=== PATIENT | female | born 1985 | race Caucasian/White ===

== ENCOUNTER 2017-03-12 21:28 | Emergency (ER) | payer OTHER ==
[2017-03-12 22:16] LABS: Hematocrit 36 % (35-47); Hemoglobin 12.4 g/dl (12.0-16.0); Mean Corpuscular HGB Conc 35 g/dl (31-36); Mean Corpuscular Hemoglobin 31 pg (27-31); Mean Corpuscular Volume 90 fL (80-97); Mean Platelet Volume 9 um3 (7.4-10.4); Red Cell Distribution Width 12 % (10.5-15); White Blood Count 7.4 10^3/ul (3.5-10.8)
[2017-03-12 22:21] LABS: Urine Bilirubin Negative (Negative); Urine Glucose Negative (Negative); Urine Nitrite Negative (Negative)
[2017-03-12 22:28] LABS: ALT 10 U/L (7-52); AST 15 U/L (13-39); Albumin 4.4 g/dL (3.2-5.2); Alkaline Phosphatase 36 U/L (34-104); Anion Gap 8 mmol/L (2-11); BUN/Creatinine Ratio 19.1 (8-20); Blood Urea Nitrogen 13 mg/dL (6-24); C Reactive Protein < 1.00 mg/L (< 5.00); CO2 Carbon Dioxide 21 mmol/L (22-32); Calcium 9.6 mg/dL (8.6-10.3); Chloride 107 mmol/L (101-111); EGFR African American 128.2 (>60); EGFR Non-African American 99.6 (>60); Globulin 2.8 g/dL (2-4); Glucose 87 mg/dL (70-100); Lipase 28 U/L (11.0-82.0); Potassium 3.6 mmol/L (3.5-5.0); Sodium 136 mmol/L (133-145); Total Protein 7.2 g/dL (6.4-8.9)
[2017-03-12] MEDS ORDERED: Cyclobenzaprine TAB* 10 MG PO ONE (23:55)
[2017-03-13 00:51] VITALS: BP 102/63
--- NOTE | 2017-03-13 01:58 | ED ---
Abdominal Pain/Female - HPI Summary HPI Summary: Patient presents to the ED with CC of right flank pain, RLQ and LLQ pain worse on the right side since 2 days. She is now experiencing urinary symptoms. She denies V/C/D. Denies fevers, sweats and chills. She is otherwise healthy, denies previous abdominal surgeries and is unknown if she is . Urinary symptoms include feelings of not being able to go and painful urination x 1 earlier today. Denies any medication use. Pain does not change depending on position. Worse with nothing, and better with spontaneous resolution. Pain is intermittent and not associated with food intake. Denies RUQ pain. Last BM this morning. - History of Current Complaint Chief Complaint: EDFlankPain Stated Complaint: FLANK PAIN Time Seen by Provider: 03/12/17 21:39 Hx Obtained From: Patient Hx Last Menstrual Period: 02/28/17 ?: No Onset/Duration: Sudden Onset Timing: Minutes Severity Initially: Mild Severity Currently: Mild Pain Intensity: 4 Pain Scale Used: 0-10 Numeric Location: Flank - bilateral Radiates: Yes Radiates to: RLQ Character: Dull, Burning Alleviating Factor(s): Nothing Associated Signs and Symptoms: Positive: Negative - Risk Factors Ectopic Risk Factor: Negative Ovarian Torsion Risk Factor: Reproductive Age Allergies/Adverse Reactions: Allergies Allergy/AdvReac Type Severity Reaction Status Date / Time Erythromycin Allergy Intermediate Rash Verified 07/01/14 03:06 Penicillins Allergy Unknown Verified 07/01/14 03:06 Reaction Details PMH/Surg Hx/FS Hx/Imm Hx Previously Healthy: Yes - Immunization History Hx Pertussis Vaccination: No Immunizations Up to Date: Unable to Obtain/Confirm Infectious Disease History: No Infectious Disease History: Denies: Traveled Outside the [place] in Last 30 Days - Family History Known Family History: Negative: Renal Disease - Social History Occupation: Employed Full-time Lives: With Family Alcohol Use: Occasionally Alcohol Amount: 2-3/week Hx Substance Use: No Substance Use Type: Reports: None Hx Tobacco Use: No Smoking Status (MU): Never Smoked Tobacco Review of Systems Constitutional: Negative Negative: Fever, Chills, Fatigue Eyes: Negative Cardiovascular: Negative Respiratory: Negative Positive: Abdominal Pain Genitourinary: Negative Positive: see HPI, dysuria, flank pain, pain, urgency Skin: Negative Psychological: Normal All Other Systems Reviewed And Are Negative: Yes Physical Exam Triage Information Reviewed: Yes Vital Signs On Initial Exam: Initial Vitals Temp Pulse Resp BP Pulse Ox 98.4 F 62 16 120/70 98 03/12/17 21:33 03/12/17 21:33 03/12/17 21:33 03/12/17 21:33 03/12/17 21:33 Vital Signs Reviewed: Yes Appearance: Positive: Well-Appearing, Well-Nourished Skin: Positive: Warm, Skin Color Reflects Adequate Perfusion Neck: Positive: Supple, No Lymphadenopathy Respiratory/Lung Sounds: Positive: Clear to Auscultation, Breath Sounds Present Cardiovascular: Positive: RRR, Pulses are Symmetrical in both Upper and Lower Extremities Abdomen Description: Positive: Soft, Other: - tenderness on deep palpation of the bilateral lower quadrants; minimal pain with CVA Bowel Sounds: Positive: Present Musculoskeletal: Positive: Normal, Strength/ROM Intact Neurological: Positive: Speech Normal Psychiatric: Positive: Normal, Affect/Mood Appropriate - Jay Coma Scale Best Eye Response: 4 - Spontaneous Best Motor Response: 6 - Obeys Commands Best Verbal Response: 5 - Oriented Coma Scale Total: 15 Diagnostics - Vital Signs Vital Signs Temp Pulse Resp BP Pulse Ox 03/13/17 00:51 99.4 F 03/13/17 00:01 76 102/63 99 03/13/17 00:00 73 100 03/12/17 23:46 75 100 03/12/17 23:30 74 100/57 100 03/12/17 23:00 78 108/68 99 03/12/17 22:00 78 107/71 100 03/12/17 21:48 89 99 03/12/17 21:46 118/81 03/12/17 21:33 98.4 F 62 16 120/70 98 - Laboratory Lab Results: Lab Results 03/12/17 03/12/17 03/12/17 Range/Units 21:56 21:59 21:59 WBC 7.4 (3.5-10.8) 10^3/ul RBC 4.00 (4.0-5.4) 10^6/ul Hgb 12.4 (12.0-16.0) g/dl Hct 36 (35-47) % MCV 90 (80-97) fL MCH 31 (27-31) pg MCHC 35 (31-36) g/dl RDW 12 (10.5-15) % Plt Count 259 (150-450) 10^3/ul MPV 9 (7.4-10.4) um3 Neut % (Auto) 47.6 (38-83) % Lymph % (Auto) 41.9 (25-47) % Brooke % (Auto) 7.2 (1-9) % Eos % (Auto) 2.4 (0-6) % Baso % (Auto) 0.9 (0-2) % Absolute Neuts (auto) 3.5 (1.5-7.7) 10^3/ul Absolute Lymphs (auto) 3.1 (1.0-4.8) 10^3/ul Absolute Monos (auto) 0.5 (0-0.8) 10^3/ul Absolute Eos (auto) 0.2 (0-0.6) 10^3/ul Absolute Basos (auto) 0.1 (0-0.2) 10^3/ul Absolute Nucleated RBC 0.01 10^3/ul Nucleated RBC % 0.1 Sodium 136 (133-145) mmol/L Potassium 3.6 (3.5-5.0) mmol/L Chloride 107 (101-111) mmol/L Carbon Dioxide 21 L (22-32) mmol/L Anion Gap 8 (2-11) mmol/L BUN 13 (6-24) mg/dL Creatinine 0.68 (0.51-0.95) mg/dL Est GFR ( Amer) 128.2 (>60) Est GFR (Non-Af Amer) 99.6 (>60) BUN/Creatinine Ratio 19.1 (8-20) Glucose 87 (70-100) mg/dL Lactic Acid (0.5-2.0) mmol/L Calcium 9.6 (8.6-10.3) mg/dL Total Bilirubin 0.40 (0.2-1.0) mg/dL AST 15 (13-39) U/L ALT 10 (7-52) U/L Alkaline Phosphatase 36 (34-104) U/L C-Reactive Protein < 1.00 (< 5.00) mg/L Total Protein 7.2 (6.4-8.9) g/dL Albumin 4.4 (3.2-5.2) g/dL Globulin 2.8 (2-4) g/dL Albumin/Globulin Ratio 1.6 (1-3) Lipase 28 (11.0-82.0) U/L Beta HCG, Quant < 0.60 mIU/mL Urine Color Colorless Urine Appearance Clear Urine pH 6.0 (5-9) Ur Specific [place] 1.002 L (1.010-1.030) Urine Protein Negative (Negative) Urine Ketones Negative (Negative) Urine Blood Negative (Negative) Urine Nitrate Negative (Negative) Urine Bilirubin Negative (Negative) Urine Urobilinogen Negative (Negative) Ur Leukocyte Esterase Negative (Negative) Urine Glucose Negative (Negative) 03/12/17 Range/Units 21:59 WBC (3.5-10.8) 10^3/ul RBC (4.0-5.4) 10^6/ul Hgb (12.0-16.0) g/dl Hct (35-47) % MCV (80-97) fL MCH (27-31) pg MCHC (31-36) g/dl RDW (10.5-15) % Plt Count (150-450) 10^3/ul MPV (7.4-10.4) um3 Neut % (Auto) (38-83) % Lymph % (Auto) (25-47) % Brooke % (Auto) (1-9) % Eos % (Auto) (0-6) % Baso % (Auto) (0-2) % Absolute Neuts (auto) (1.5-7.7) 10^3/ul Absolute Lymphs (auto) (1.0-4.8) 10^3/ul Absolute Monos (auto) (0-0.8) 10^3/ul Absolute Eos (auto) (0-0.6) 10^3/ul Absolute Basos (auto) (0-0.2) 10^3/ul Absolute Nucleated RBC 10^3/ul Nucleated RBC % Sodium (133-145) mmol/L Potassium (3.5-5.0) mmol/L Chloride (101-111) mmol/L Carbon Dioxide (22-32) mmol/L Anion Gap (2-11) mmol/L BUN (6-24) mg/dL Creatinine (0.51-0.95) mg/dL Est GFR ( Amer) (>60) Est GFR (Non-Af Amer) (>60) BUN/Creatinine Ratio (8-20) Glucose (70-100) mg/dL Lactic Acid 0.7 (0.5-2.0) mmol/L Calcium (8.6-10.3) mg/dL Total Bilirubin (0.2-1.0) mg/dL AST (13-39) U/L ALT (7-52) U/L Alkaline Phosphatase (34-104) U/L C-Reactive Protein (< 5.00) mg/L Total Protein (6.4-8.9) g/dL Albumin (3.2-5.2) g/dL Globulin (2-4) g/dL Albumin/Globulin Ratio (1-3) Lipase (11.0-82.0) U/L Beta HCG, Quant mIU/mL Urine Color Urine Appearance Urine pH (5-9) Ur Specific [place] (1.010-1.030) Urine Protein (Negative) Urine Ketones (Negative) Urine Blood (Negative) Urine Nitrate (Negative) Urine Bilirubin (Negative) Urine Urobilinogen (Negative) Ur Leukocyte Esterase (Negative) Urine Glucose (Negative) Result Diagrams: 03/12/17 21:59 03/12/17 21:59 Lab Statement: Any lab studies that have been ordered have been reviewed, and results considered in the medical decision making process. Abdominal Pain Fem Course/Dx - Course Course Of Treatment: Patient evaluated for bilateral lower quadrant pain with right sided flank pain. No history of stones. On PE, she has tenderness on deep palpation of the bilateral lower quadrants; minimal pain with CVA. Bowel sounds present. Denies fevers, sweats and chills. CT Abdomen/pelvis shows no abdominal or pelvic findings. No renal stones or evidence of obstructive uropathy noted. Appendix is normal. She declines pain medication as she rates her pain 4/10. UA shows no WBC or other. Treatment options explained to patient. I have discussed that nothing of urologic pathology was found and appendix is normal. Possibly this pain is from a muscular strain as the majority of the pain is located in the back. I have suggested a short trial of a muscle relaxer to assess for improvement. I have given her 1 dose in the ED with effect. Patient understands the plan, voices no concerns at this time and understands the return precatuions given to them if any symptoms become worse. They are OK for discharge at this time. VS stable on discharge. - Diagnoses Provider Diagnoses: Back pain Discharge - Discharge Plan Condition: Stable Disposition: HOME Prescriptions: Cyclobenzaprine TAB* [Flexeril TAB*] 10 mg PO BID PRN #10 tab PRN Reason: Pain Patient Education Materials: Muscle Strain (ED) Referrals: No Primary Care Phys,NOPCP [Primary Care Provider] - Additional Instructions: As discussed, unsure why you are having this back and abdominal pain Urine was OK showing no bacteria CT scan showed no abnormalities with the kidney or appendix Will try the muscle relaxer for possible strain, but please return if any worsening symptoms develop Addendum entered and electronically signed by Alis Valentin PA 04/04/17 07:33 :
--- NOTE | 2017-03-13 10:34 | RAD ---
Indication: Abdominal pain. Flank pain. CT of the abdomen and pelvis was performed without oral or IV contrast administration. Coronal and sagittal reconstructed images were obtained. The lung bases demonstrate no pleural fluid, nodules or masses. Heart is of normal size without evidence of pericardial effusion. The liver is normal in size. No focal lesions or intrahepatic ductal dilatation is noted. The spleen is normal in size. No adrenal lesions are noted. The kidneys demonstrates no hydronephrosis. No retroperitoneal lymphadenopathy is noted. No dilated loops of bowel are noted. The gallbladder demonstrates no calcified gallstones. No pericholecystic fluid or wall thickening is noted. No dilated loops of bowel are noted. The uterus and ovaries are unremarkable. The urinary bladder is unremarkable. The appendix is visualized and is contrast-filled. There is a trace amount of free fluid in the cul-de-sac. Ovaries and uterus are unremarkable. IMPRESSION: No evidence of obstructive uropathy is noted. No other masses or fluid collections are identified.
== END 2017-03-13 00:54 | disposition home or self-care (01) ==
LOC: ED 21:28
DX: M54.9 Dorsalgia, unspecified (principal); R10.84 Generalized abdominal pain; R30.0 Dysuria
CPT/HCPCS: 36415; 74176; 80053; 81003; 83605; 83690; 84702; 85025; 86140; 99283; A9270-GY

== ENCOUNTER 2017-07-11 11:46 | Emergency (ER) | payer OTHER ==
[2017-07-11 13:05] LABS: ABS Basophils 0.1 10^3/ul (0-0.2); ABS Eosinophils 0.1 10^3/ul (0-0.6); ABS Lymphocytes 2.3 10^3/ul (1.0-4.8); ABS Monocytes 0.3 10^3/ul (0-0.8); ABS Neutrophils 2.3 10^3/ul (1.5-7.7); ABS Nucleated RBC 0 10^3/ul; Eosinophil % 1.9 % (0-6); Hematocrit 37 % (35-47); Hemoglobin 12.2 g/dl (12.0-16.0); Mean Corpuscular HGB Conc 33 g/dl (31-36); Mean Corpuscular Hemoglobin 30 pg (27-31); Mean Corpuscular Volume 90 fL (80-97); Mean Platelet Volume 9 um3 (7.4-10.4); Nucleated Red Blood Cells % 0; Platelet Count 319 10^3/ul (150-450); Red Blood Count 4.06 10^6/ul (4.0-5.4); Red Cell Distribution Width 13 % (10.5-15)
[2017-07-11 13:17] LABS: EGFR Non-African American 106.2 (>60)
--- NOTE | 2017-07-11 15:22 | RAD ---
HISTORY: Pelvic pain COMPARISONS: April 26, 2017 TECHNIQUE: Multiple transverse and longitudinal ultrasound images were obtained of the pelvis using grayscale, color Doppler, and spectral Doppler imaging using the transabdominal transducer. FINDINGS: UTERUS: The uterus measures 7.3 x 3.9 x 4.7 cm. The uterus is normal in shape, size, contour, and echotexture. ENDOMETRIUM: The endometrial stripe is smooth. The endometrium measures 0.5 cm in thickness. CUL-DE-SAC: There is a small amount of simple fluid within the cul-de-sac. This may be physiologic in a reproductive age female. RIGHT OVARY: The right ovary measures 3.4 x 1.4 x 3.1 cm. Normal arterial and venous waveforms are identifiable within the ovary on spectral Doppler imaging. LEFT OVARY: The left ovary measures 3.2 x 1.6 x 2 cm. Normal arterial and venous waveforms are identifiable within the ovary on spectral Doppler imaging. BLADDER: The visualized bladder is unremarkable. OTHER: None IMPRESSION: 1. NO SONOGRAPHIC FEATURES OF TORSION. PLEASE NOTE THAT PARTIAL OR INTERMITTENT TORSION MAY BE SONOGRAPHICALLY NORMAL. 2. THERE IS A SMALL AMOUNT OF SIMPLE FLUID WITHIN THE CUL-DE-SAC. THIS MAY BE PHYSIOLOGIC IN A REPRODUCTIVE AGE FEMALE.
[2017-07-11 17:13] VITALS: BP 101/68
--- NOTE | 2017-07-12 16:15 | ED ---
Brodie Murdock Angela, scribed for Jose Alejandro Brown MD on 07/11/17 at 1353 . Abdominal Pain/Female - HPI Summary HPI Summary: This pt is a 32 y/[facility] right lower abd pain x2 days. Pt reports her symptoms began with abdominal bloating and discomfort last week. She additionally notes some nausea. Denies vomiting, diarrhea. She currently rates her pain 3 or 4 out of 10 in severity. Pt states she has had this pain before around winter and had a pelvic US. Her ultrasound revealed she had an ovarian cyst. Pt reports she changed her diet and her pain resolved. LMP: began 4 days ago. - History of Current Complaint Chief Complaint: EDAbdPain Stated Complaint: ABD PAIN Time Seen by Provider: 07/11/17 12:53 Hx Obtained From: Patient Hx Last Menstrual Period: 02/28/17 Onset/Duration: Lasting Days - 2, Still Present Timing: Constant Severity Currently: Mild Pain Intensity: 3 Pain Scale Used: 0-10 Numeric Location: Other - right lower abd pain Radiates: No Aggravating Factor(s): Nothing Alleviating Factor(s): Nothing Associated Signs and Symptoms: Positive: Nausea. Negative: Urinary Symptoms, Vomiting, Diarrhea Allergies/Adverse Reactions: Allergies Allergy/AdvReac Type Severity Reaction Status Date / Time MS Erythromycin Allergy Intermediate Rash Verified 07/11/17 11:49 [Erythromycin] MS Penicillins [Penicillins] Allergy Unknown Verified 07/11/17 11:49 Reaction Details PMH/Surg Hx/FS Hx/Imm Hx Endocrine/Hematology History: Denies: Hx Diabetes Cardiovascular History: Denies: Hx Hypertension Infectious Disease History: No Infectious Disease History: Denies: Traveled Outside the [place] in Last 30 Days - Family History Known Family History: Negative: Renal Disease, Blood Disorder - clotting - Social History Alcohol Use: Occasionally Alcohol Amount: 2-3/week Hx Substance Use: No Substance Use Type: Reports: None Hx Tobacco Use: No Smoking Status (MU): Never Smoked Tobacco Review of Systems Negative: Fever, Chills Eyes: Negative ENT: Negative Positive: Abdominal Pain, Nausea. Negative: Vomiting Musculoskeletal: Negative Skin: Negative Neurological: Negative All Other Systems Reviewed And Are Negative: Yes Physical Exam - Summary Physical Exam Summary: VITAL SIGNS: Reviewed. GENERAL: Patient is a well-developed and nourished female who is lying comfortable in the stretcher. Patient is not in any acute respiratory distress. HEAD AND FACE: Normocephalic and atraumatic. EYES: PERRLA, EOMI x 2, No injected conjunctiva. EARS: Hearing grossly intact. Ear canals and tympanic membranes are WNL. MOUTH: Oropharynx within normal limits. NECK: Supple, trachea is midline, no adenopathy, no JVD. CHEST: Symmetric, no tenderness at palpation LUNGS: Clear to auscultation bilaterally. No wheezing or crackles. CVS: RRR, S1 and S2 present, no murmurs or gallops appreciated. ABDOMEN: Soft. Right pelvic area tenderness. No signs of distention. Positive bowel sounds. No rebound no guarding, and no masses palpated. No abdominal bruit or pulsations. EXTREMITIES: FROM in all major joints, no edema, no cyanosis or clubbing. NEURO: Alert and oriented x 3. No acute neurological deficits. Speech is normal. SKIN: Dry and warm Triage Information Reviewed: Yes Vital Signs On Initial Exam: Initial Vitals Temp Pulse Resp BP Pulse Ox 98.5 F 70 20 96/83 100 07/11/17 11:49 07/11/17 11:49 07/11/17 11:49 07/11/17 11:49 07/11/17 11:49 Vital Signs Reviewed: Yes Diagnostics - Vital Signs Vital Signs Temp Pulse Resp BP Pulse Ox 07/11/17 11:49 98.5 F 70 20 96/83 100 - Laboratory Lab Results: Lab Results 07/11/17 07/11/17 07/11/17 Range/Units 12:52 12:52 12:52 WBC 5.0 (3.5-10.8) 10^3/ul RBC 4.06 (4.0-5.4) 10^6/ul Hgb 12.2 (12.0-16.0) g/dl Hct 37 (35-47) % MCV 90 (80-97) fL MCH 30 (27-31) pg MCHC 33 (31-36) g/dl RDW 13 (10.5-15) % Plt Count 319 (150-450) 10^3/ul MPV 9 (7.4-10.4) um3 Neut % (Auto) 45.7 (38-83) % Lymph % (Auto) 45.0 (25-47) % Coffee % (Auto) 6.2 (0-7) % Eos % (Auto) 1.9 (0-6) % Baso % (Auto) 1.2 (0-2) % Absolute Neuts (auto) 2.3 (1.5-7.7) 10^3/ul Absolute Lymphs (auto) 2.3 (1.0-4.8) 10^3/ul Absolute Monos (auto) 0.3 (0-0.8) 10^3/ul Absolute Eos (auto) 0.1 (0-0.6) 10^3/ul Absolute Basos (auto) 0.1 (0-0.2) 10^3/ul Absolute Nucleated RBC 0 10^3/ul Nucleated RBC % 0 Sodium 140 (133-145) mmol/L Potassium 3.9 (3.5-5.0) mmol/L Chloride 107 (101-111) mmol/L Carbon Dioxide 29 (22-32) mmol/L Anion Gap 4 (2-11) mmol/L BUN 9 (6-24) mg/dL Creatinine 0.64 (0.51-0.95) mg/dL Est GFR ( Amer) 136.6 (>60) Est GFR (Non-Af Amer) 106.2 (>60) BUN/Creatinine Ratio 14.1 (8-20) Glucose 89 (70-100) mg/dL Lactic Acid 0.5 (0.5-2.0) mmol/L Calcium 10.0 (8.6-10.3) mg/dL Total Bilirubin 0.40 (0.2-1.0) mg/dL AST 18 (13-39) U/L ALT 10 (7-52) U/L Alkaline Phosphatase 41 (34-104) U/L C-Reactive Protein < 1.00 (< 5.00) mg/L Total Protein 7.5 (6.4-8.9) g/dL Albumin 4.9 (3.2-5.2) g/dL Globulin 2.6 (2-4) g/dL Albumin/Globulin Ratio 1.9 (1-3) Lipase 25 (11.0-82.0) U/L Beta HCG, Quant < 0.60 mIU/mL Result Diagrams: 07/11/17 12:52 03/05/18 12:52 Lab Statement: Any lab studies that have been ordered have been reviewed, and results considered in the medical decision making process. - Ultrasound No standard instances Ultrasound Interpretation: No Acute Changes - Pelvic US IMPRESSION: 1. No sonographic features of torsion. Please not that partial or intermittent torsion may be sonographically normal. 2. There is a small amount of simple fluid within the cul-de-sac. This may be physiologic in a reproductive age female. Dr. Brown has reviewed this radiology report. Ultrasound Interpretation Completed By: Radiologist Re-Evaluation - Re-Evaluation First Eval Re-Evaluation Time: 16:37 Comment: I reviewed the lab and US results with the pt. I re-examined the pt, abdomen is not tender. She reports feeling better and has no pain. Abdominal Pain Fem Course/Dx - Course Course Of Treatment: This pt is a 32 y/o female presenting to [facility] c/o right lower abd pain x2 days. Pt reports her symptoms began with abdominal bloating and discomfort last week. She additionally notes some nausea. Denies vomiting, diarrhea. She currently rates her pain 3 or 4 out of 10 in severity. Pt states she has had this pain before around winter and had a pelvic US. Her ultrasound revealed she had an ovarian cyst. Pt reports she changed her diet and her pain resolved. LMP: began 4 days ago. Test results without any significant abnormalities. Pelvic US: 1. No sonographic features of torsion. Please not that partial or intermittent torsion may be sonographically normal. 2. There is a small amount of simple fluid within the cul-de-sac. This may be physiologic in a reproductive age female. Since the pt does not have an increase in WBC or CRP, and her pain has resolved, I have a low suspicion for appendicitis. I discussed the indications for a CT abdomen/pelvis and they agree they want to go home. If symptoms return or worsen, they will return to the ED for an abdomen/pelvis CT. Pt is hemodynamically stable, alert and oriented x3. - Diagnoses Provider Diagnoses: Pelvic pain Discharge - Discharge Plan Condition: Stable Disposition: HOME Patient Education Materials: Pelvic Pain in Women (ED) Referrals: [facility] - Jason DONOHUE [Primary Care Provider] - 3 Days Additional Instructions: Please follow up with your primary care provider. RETURN TO THE ED FOR ANY WORSENING SYMPTOMS. The documentation as recorded by the Brodie siddiqui Angela accurately reflects the service I personally performed and the decisions made by me, Jose Alejandro Brown MD.
== END 2017-07-11 17:11 | disposition home or self-care (01) ==
LOC: ED 11:46
DX: R10.2 Pelvic and perineal pain (principal); Z88.3 Allergy status to other anti-infective agents; Z88.0 Allergy status to penicillin
CPT/HCPCS: 36415; 76856; 80053; 83605; 83690; 84702; 85025; 86140; 99284